=== PATIENT | female | born 1960 | race Caucasian/White ===

== ENCOUNTER → 2017-02-01 | Outpatient (CLI) | payer OTHER ==
--- NOTE | 2017-02-01 15:23 | XR ---
EXAMINATION TYPE: XR chest 2V DATE OF EXAM: 02/01/2017 COMPARISON: Prior chest x-ray September 04, 2010 HISTORY: Cough and shortness of breath for 3 weeks. TECHNIQUE: Frontal and lateral views of the chest are obtained. FINDINGS: Chronic emphysematous change is present. There is no focal air space opacity, pleural effu tomas, or pneumothorax seen. The cardiac silhouette size is within normal limits with atherotic walters e in aortic knob. The osseous structures are demineralized. Slight underlying S-shaped scoliosis is present. IMPRESSION: Chronic emphysematous change without acute pulmonary process.
== END | disposition home or self-care (01) ==
LOC: RADXRMAIN 15:03
PROVIDERS: ATTEND Family Medicine
DX: J43.8 Other emphysema (principal)
CPT/HCPCS: 71020

== ENCOUNTER → 2017-06-24 | Outpatient (CLI) | payer OTHER ==
--- NOTE | 2017-06-27 08:24 | MM ---
Reason for exam: screening (asymptomatic). Last mammogram was performed 1 year and 9 months ago. History: Patient is postmenopausal. Family history of breast cancer in mother at age 63. Benign excisional biopsy of the right breast, 2007. Benign US right core biopsy of the right breast, August 29, 2006. Cyst aspiration of the right breast. Took hormonal contraceptives for 25 years beginning at age 20. Physical Findings: A clinical breast exam by your physician is recommended on an annual basis and results should be correlated with mammographic findings. MG Screening Mammo w CAD Bilateral CC and MLO view(s) were taken. Prior study comparison: September 11, 2015, bilateral MG 3d screening mammo w/cad. June 26, 2014, bilateral MG diagnostic mammo w CAD [facility]. There are scattered fibroglandular densities. Previous mammotome biopsy in the right breast. There is no discrete abnormality. ASSESSMENT: Benign, BI-RAD 2 RECOMMENDATION: Routine screening mammogram of both breasts in 1 year.
== END | disposition home or self-care (01) ==
LOC: RADMAMWWP 09:43
PROVIDERS: ATTEND Family Medicine
DX: Z12.31 Encounter for screening mammogram for malignant neoplasm of breast (principal)
CPT/HCPCS: 77067

== ENCOUNTER 2019-04-28 13:49 | Emergency (ER) | payer MEDICARE, OTHER ==
[2019-04-28 14:47] VITALS: BP 115/69; PULSE 92; RESP 18; TEMP 98
--- NOTE | 2019-04-28 15:42 | ED ---
Lower Extremity Injury HPI - General Chief Complaint: Extremity Injury, Lower Stated Complaint: Leg wound Source: patient Mode of arrival: ambulatory Limitations: no limitations - History of Present Illness Initial Comments: 58 yo on immune therapy for RA (compromised) presenting for possible infection. patient states hit leg on 04/17, sustained abrasion. Now for the past 2 days the are has appeared red, increased pain. no drainge, abscess, no fever, flu like symptoms. no proximal spread. Denies any other symptoms or complaints. Patient appears well nontoxic on arrival - Related Data Previous Rx's Medication Instructions Recorded Clindamycin [Cleocin] 450 mg PO Q8H 7 Days #63 capsule 04/28/19 Allergies Allergy/AdvReac Type Severity Reaction Status Date / Time cephalexin [From Keflex] AdvReac Nausea Verified 04/28/19 14:47 codeine AdvReac Nausea Verified 04/28/19 14:47 erythromycin base AdvReac Nausea Verified 04/28/19 14:47 Review of Systems ROS Statement: Those systems with pertinent positive or pertinent negative responses have been documented in the HPI. ROS Other: All systems not noted in ROS Statement are negative. Past Medical History Past Medical History: Rheumatoid Arthritis (RA), Thyroid Disorder History of Any Multi-Drug Resistant Organisms: None Reported Past Surgical History: Orthopedic Surgery Additional Past Surgical History / Comment(s): nasal Past Psychological History: No Psychological Hx Reported Smoking Status: Former smoker Past Alcohol Use History: None Reported Past Drug Use History: None Reported General Exam - General Exam Comments Initial Comments: General: The patient is awake and alert, in no distress, and does not appear acutely ill. Eye: Pupils are equal, round and reactive to light, extra-ocular movements are intact. No nystagmus. There is normal conjunctiva bilaterally. No signs of icterus. Cardiovascular: There is a regular rate and rhythm. No murmur, rub or gallop is appreciated. Respiratory: Lungs are clear to auscultation, respirations are non-labored, breath sounds are equal. No wheezes, stridor, rales, or rhonchi. Musculoskeletal: Normal ROM, no tenderness. Strength 5/5. Sensation intact. Pulses equal bilaterally 2+. Neurological: A&O x 3. CN II-XII intact grossly, There are no obvious motor or sensory deficits. Coordination appears grossly intact. Speech is normal. Skin: Skin is warm and dry and no rashes. 2cm scabbed over abrasion left anterior kelly, no area of fluctuance. Surrounding erythema rylan tis warm to palpation roughly 3cm from abrasion site. Psychiatric: Cooperative, appropriate mood & affect, normal judgment. Limitations: no limitations Course Vital Signs 04/28/19 14:44 Temperature 98.0 F Pulse Rate 92 Respiratory 18 Rate Blood Pressure 115/69 O2 Sat by Pulse 98 Oximetry Medical Decision Making - Medical Decision Making 58yo cc possible infection, exam consistent with cellulitis no abscess. patient has no MRSA hx. will be started on clindamycin given cephalexin allergy history. Discussed c.difficile risk, patient understandings. No fever, no systemic signs of infection, patient will be discharge with PCP f/u if worsens as discussed patient is to return immediately to the Er. patient verbalized understanding d/c appearing well. Disposition Clinical Impression: Cellulitis Disposition: HOME SELF-CARE Condition: Good Instructions (If sedation given, give patient instructions): Cellulitis (ED) Additional Instructions: Please use medication as discussed. Please follow-up with family doctor in the next 2 days. Please return to emergency room if the symptoms increase or worsen or for any other concerns-fevers, spreading of redness. Prescriptions: Clindamycin [Cleocin] 450 mg PO Q8H 7 Days #63 capsule Is patient prescribed a controlled substance at d/c from ED?: No Referrals: Ferny Dorsey DO [Primary Care Provider] - 1-2 days Time of Disposition: 15:41
== END 2019-04-28 15:46 | disposition home or self-care (01) ==
LOC: EC 13:49
DX: L03.116 Cellulitis of left lower limb (principal); S80.812A Abrasion, left lower leg, initial encounter; M06.9 Rheumatoid arthritis, unspecified; Z87.891 Personal history of nicotine dependence; Z88.1 Allergy status to other antibiotic agents; Z88.5 Allergy status to narcotic agent; Z79.899 Other long term (current) drug therapy; W22.8XXA Striking against or struck by other objects, initial encounter
CPT/HCPCS: 99283

== ENCOUNTER 2020-03-19 16:07 | Emergency (ER) | payer MEDICARE, OTHER ==
[2020-03-19 16:33] VITALS: BP 132/64; PULSE 94; RESP 18; TEMP 98.5
--- NOTE | 2020-03-19 17:15 | XR ---
EXAMINATION TYPE: XR forearm LT DATE OF EXAM: 03/19/2020 COMPARISON: NONE HISTORY: Pain TECHNIQUE: 3 views FINDINGS: There is impacted comminuted transverse fracture distal radial metaphysis. This is 1 cm fro m the wrist joint. Ulna appears intact. There is no dislocation. Elbow joint appears intact. IMPRESSION: Acute impacted nondisplaced distal radius fracture with comminution.
--- NOTE | 2020-03-19 17:16 | XR ---
EXAMINATION TYPE: XR wrist complete LT DATE OF EXAM: 03/19/2020 COMPARISON: NONE HISTORY: Pain. Fall. TECHNIQUE: 4 views. There is acute impacted transverse comminuted fracture distal radial metaphysis. Carpal bones are int act. Scaphoid appears normal. Metacarpals are appear intact. IMPRESSION: Acute impacted nondisplaced transverse distal radius fracture.
--- NOTE | 2020-03-19 17:17 | XR ---
EXAMINATION TYPE: XR hand complete LT DATE OF EXAM: 03/19/2020 COMPARISON: NONE HISTORY: Pain TECHNIQUE: 3 views FINDINGS: Metacarpals are intact. The fingers are intact. There is mild subluxation deformity at the first MP joint. There is impacted transverse fracture distal radius. IMPRESSION: Mild subluxation at the first MP joint consistent with some instability. Distal radius fr acture noted. No sign of inflammatory arthritis.
[2020-03-19] MEDS ORDERED: HYDROcodone/APAP 5-325MG 1 EACH TAB PO STA (17:26)
--- NOTE | 2020-03-19 17:29 | ED ---
Fall HPI - General Chief Complaint: Fall Stated Complaint: poss broken wrist Time Seen by Provider: 03/19/20 16:46 Source: patient Mode of arrival: ambulatory - History of Present Illness Initial Comments: 59-year-old female presenting to the emergency room with a chief complaint of left wrist pain. Patient states she was walking, lost her footing and in attempt to brace her fall with both of her hands. He states most of the fall was on the left hand. States no other areas pain and swelling in the left wrist. Reports limited range of motion with flexion and extension of the breast due to pain. Denies any numbness or tingling. Does report taking [id number] analgesics with some improvement in symptoms. States any movement exacerbates the pain. Rest alleviates the pain. She denies head injury, loss of consciousness. No blood thinners. - Related Data Home Medications Medication Instructions Recorded Confirmed Albuterol Inhaler [Ventolin Hfa 2 puff INHALATION RT-QID PRN 03/19/20 03/19/20 Inhaler] Etanercept [Enbrel Sureclick] 50 mg SQ FR 03/19/20 03/19/20 Fluticasone/Vilanterol [Breo 1 puff INHALATION RT-DAILY 03/19/20 03/19/20 Ellipta 200-25 Mcg INH] Levothyroxine Sodium [Synthroid] 75 mcg PO DAILY 03/19/20 03/19/20 Meclizine [Antivert] 12.5 mg PO TID 03/19/20 03/19/20 Multivitamins, Thera [Multivitamin 1 tab PO DAILY 03/19/20 03/19/20 (formulary)] Omeprazole 20 mg PO DAILY PRN 03/19/20 03/19/20 Previous Rx's Medication Instructions Recorded oxyCODONE-APAP 5-325MG [Percocet 1 tab PO Q6HR PRN 3 Days #12 tab 03/19/20 5-325 mg] Allergies Allergy/AdvReac Type Severity Reaction Status Date / Time cephalexin [From Keflex] AdvReac Nausea Verified 03/19/20 17:30 codeine AdvReac Nausea Verified 03/19/20 17:30 erythromycin base AdvReac Nausea Verified 03/19/20 17:30 Review of Systems ROS Statement: Those systems with pertinent positive or pertinent negative responses have been documented in the HPI. ROS Other: All systems not noted in ROS Statement are negative. Past Medical History Past Medical History: Rheumatoid Arthritis (RA), Thyroid Disorder History of Any Multi-Drug Resistant Organisms: None Reported Past Surgical History: Orthopedic Surgery Additional Past Surgical History / Comment(s): nasal Past Psychological History: No Psychological Hx Reported Smoking Status: Never smoker Past Alcohol Use History: None Reported Past Drug Use History: None Reported General Exam Limitations: no limitations General appearance: alert, in no apparent distress Head exam: Present: atraumatic, normocephalic, normal inspection Eye exam: Present: normal appearance, PERRL, EOMI Pupils: Present: normal accommodation ENT exam: Present: normal exam, normal oropharynx, mucous membranes moist, TM's normal bilaterally, normal external ear exam Neck exam: Present: normal inspection, full ROM. Absent: tenderness Respiratory exam: Present: normal lung sounds bilaterally. Absent: respiratory distress, wheezes, rales Cardiovascular Exam: Present: regular rate, normal rhythm, normal heart sounds GI/Abdominal exam: Present: soft. Absent: distended, tenderness, guarding Extremities exam: Present: tenderness (Left wrist tenderness to palpation. No scaphoid tenderness.), normal capillary refill, other (+2 ulnar and radial pulses bilaterally. Sensation intact in the left hand.). Absent: normal inspection (Swelling noted at the left wrist, particularly the lateral aspect.), full ROM (Limited range of motion due to pain with wrist flexion and extension.), pedal edema, joint swelling, calf tenderness Back exam: Present: normal inspection, full ROM. Absent: tenderness, CVA tenderness (R), CVA tenderness (L) Neurological exam: Present: alert, oriented X3 Psychiatric exam: Present: normal affect, normal mood Skin exam: Present: warm, dry, intact, normal color Course Vital Signs 03/19/20 16:30 Temperature 98.5 F Pulse Rate 94 Respiratory 18 Rate Blood Pressure 132/64 O2 Sat by Pulse 94 L Oximetry Procedures - Orthopedic Splinting/Casting Injury #1 Side: left Upper Extremity Injury Location: wrist Upper Extremity Immobilizer: volar splint, Braeden wrap, synthetic pre-padded splint Medical Decision Making - Medical Decision Making 59-year-old female presenting to the emergency department with a chief complaint of left wrist pain. On exam, patient has limited range of motion and tenderness to the left wrist. However, she is neurovascularly intact. X-ray reveals acute, impacted nondisplaced transverse distal radial fracture. Patient was given analgesia after she initially declined. Volar splint was applied. Patient was advised to follow-up with an unattended ground sensor specialist. She was also discharged with Percocet because she is ALLERGIC to codeine and states this is the only medication to burst for pain for her. Return parameters thoroughly discussed the patient is understanding and agreeable. Case discussed with physician. Disposition Clinical Impression: Fall, Distal radius fracture, left, Left wrist fracture Disposition: HOME SELF-CARE Condition: Stable Instructions (If sedation given, give patient instructions): Wrist Fracture in Adults (ED) Additional Instructions: follow up with an unattended ground sensor specialist. Do not drive or operate heavy machinery when taking the medication. Keep the arm elevated. Prescriptions: oxyCODONE-APAP 5-325MG [Percocet 5-325 mg] 1 tab PO Q6HR PRN 3 Days #12 tab PRN Reason: Pain Is patient prescribed a controlled substance at d/c from ED?: Yes If prescribed controlled substance>3 days was MAPS reviewed?: Prescribed <3 Days Referrals: Ferny Dorsey DO [Primary Care Provider] - 1-2 days Luis Gylnn MD [STAFF PHYSICIAN] - 1-2 days Time of Disposition: 17:28
== END 2020-03-19 17:50 | disposition home or self-care (01) ==
LOC: EC 16:07
DX: S52.502A Unspecified fracture of the lower end of left radius, initial encounter for closed fracture (principal); E07.9 Disorder of thyroid, unspecified; M06.9 Rheumatoid arthritis, unspecified; Z79.51 Long term (current) use of inhaled steroids; Z79.899 Other long term (current) drug therapy; Z79.890 Hormone replacement therapy; Z88.5 Allergy status to narcotic agent; Z88.1 Allergy status to other antibiotic agents; W18.30XA Fall on same level, unspecified, initial encounter; Y93.01 Activity, walking, marching and hiking
CPT/HCPCS: 29125; 99283

== ENCOUNTER → 2020-05-23 | Outpatient (CLI) | payer MEDICARE, OTHER ==
--- NOTE | 2020-05-23 11:29 | BD ---
EXAMINATION TYPE: Axial Bone Density DATE OF EXAM: 05/23/2020 COMPARISON: NONE CLINICAL HISTORY: Height: 5 FT 2 IN Weight: 119 FRAX RISK QUESTIONS: Alcohol (3 or more units per day): NO Family History (Parent hip fracture): NO Glucocorticoids (More than 3mos): YES (Ex: prednisone, prednisolone, methylprednisolone, dexamethasone, and hydrocortisone). History of Fracture in Adulthood: YES Secondary Osteoporosis: 1. Type 1 Diabetes: NO 2. Hyperthyroidism: NO 3. Menopause before 45: NO 4. Malnutrition: NO 5. Chronic liver disease: NO Rheumatoid Arthritis: YES Current Tobacco Use: NO RISK FACTORS HISTORY OF: History of Wrist Fracture: LEFT When: 2019 Family History of Osteoporosis: NO Active: YES Diet low in dairy products/other sources of calcium: NO Postmenopausal woman: [place] 2006 NO SYMPTOMS OF MENOPAUSE Lost more than 2 inches in height since high school: YES MEDICATIONS: Thyroid Medications: YES Which medication: SYNTHROID How Lon YEARS How Long: Additional Medications: ANTIVERT, SYNTHROID ,INHALER, NEBULIZER,ENBREL Additional History: EXAM MEASUREMENTS: Bone mineral densitometry was performed using the [employer] System. Bone mineral density as measured about the Lumbar spine is: ----- L1-L4(G/cm2): 1.061 T Score Values are as follows: ----- L2: -0.9 ----- L3: -0.3 ----- L4: -1.3 ----- L1-L4: -1.0 BASELINE Bone mineral density about the R hip (g/cm2): 0.710 Bone mineral density about the L hip (g/cm2): 0.741 T Score values are as follows: -----R Neck: -2.4 -----L Neck: -2.1 -----R Total: -2.4 -----L Total: -2.2 BASELINE IMPRESSION: Osteopenia NOTE: T-SCORE=SD OF THE YOUNG ADULT MEAN.
== END | disposition home or self-care (01) ==
LOC: RADBDWWP 09:59
PROVIDERS: ATTEND Internal Medicine Rheumatology
DX: M85.80 Other specified disorders of bone density and structure, unspecified site (principal); M80.00XA Age-related osteoporosis with current pathological fracture, unspecified site, initial encounter for fracture; M06.9 Rheumatoid arthritis, unspecified; Z79.51 Long term (current) use of inhaled steroids; Z87.81 Personal history of (healed) traumatic fracture
CPT/HCPCS: 77080

== ENCOUNTER → 2020-06-27 | Outpatient (CLI) | payer MEDICARE, OTHER ==
--- NOTE | 2020-06-27 09:34 | CT ---
EXAMINATION TYPE: CT elbow LT wo con DATE OF EXAM: 06/27/2020 COMPARISON: Left forearm x-ray March 19, 2020. HISTORY: Displaced fracture of olecranon process, left elbow pain. CT DLP: 209 mGycm Automated exposure control for dose reduction was used. FINDINGS: Exam suboptimal as imaging not performed in satisfactory repeat plain positioning. There is obliquity on all images are reconstructed images obtained. There is acute comminuted slightly displaced fracture through the olecranon. No dislocation is presen t. There is 1.5 x 1.3 cm free fracture fragment between the lip of the olecranon and the proximal uln ar metadiaphysis marked for reference sagittal image 16. No intra-articular loose bodies clearly seen . Suspect one or 2 additional small ossific fracture fragments at site of fracture on coronal and axi al reconstructed images. A few tiny loose ossific fragments noted dorsally axial image 33 series 7 fo r reference. The radial head is intact. Distal humerus is intact. Surrounding cast material is seen. Abnormal fat pad signs consistent with intra-articular effusion or hematoma noted corresponds to intra-articular fracture. IMPRESSION: As above.
== END ==
LOC: RADCTMAIN 07:02
PROVIDERS: ATTEND Orthopaedic Surgery
DX: S52.032A Displaced fracture of olecranon process with intraarticular extension of left ulna, initial encounter for closed fracture (principal)

== ENCOUNTER → 2021-02-13 | Outpatient (CLI) | payer MEDICARE, OTHER ==
--- NOTE | 2021-02-13 14:13 | US ---
EXAMINATION TYPE: US thyroid st tissue head/neck DATE OF EXAM: 02/13/2021 COMPARISON: NONE CLINICAL HISTORY: E03.9 HYPOTHYROIDISM. Pt states hypothyroid x many years, has been on thyroid meds x many years GLAND SIZE: Right Lobe: 3.1 x 1.0 x 0.8 cm Overall Parenchyma: heterogenous Left Lobe: 3.2 x 1.0 x 0.6 cm Overall Parenchyma: heterogeneous Isthmus Thickness: 0.2 cm Bilateral neck scanned, no evidence of lymphadenopathy. Bilateral thyroid heterogeneous, small in siz e/ No definite nodules visualized. IMPRESSION: Thyroid lobes are diminutive in size and heterogenous. No distinct nodules are seen.
== END | disposition home or self-care (01) ==
LOC: RADUSWWP 13:37
PROVIDERS: ATTEND Family Medicine
DX: E03.9 Hypothyroidism, unspecified (principal)
CPT/HCPCS: 76536

== ENCOUNTER → 2021-06-01 | Outpatient (CLI) | payer MEDICARE, OTHER | END | disposition home or self-care (01) | LOC: LABWHC1 13:47 | PROVIDERS: ATTEND Internal Medicine Endocrinology, Diabetes & Metabolism | DX: E03.8 Other specified hypothyroidism (principal) | CPT/HCPCS: 36415; 84443 ==

== ENCOUNTER → 2022-01-12 | Outpatient (CLI) | payer MEDICARE, OTHER ==
[2022-01-12 19:19] LABS: African American GFR (CKD) 92.2 (60.0-200.0); Albumin 4.4 g/dL (3.8-4.9); Albumin/Globulin Ratio 1.57 (1.60-3.17); Anion Gap 8.3 mmol/L (10.00-18.00); BUN/Creat Ratio 18.88 Ratio (12.00-20.00); Blood Urea Nitrogen 15.1 mg/dL (9.0-27.0); Calcium 9.7 mg/dL (8.7-10.3); Carbon Dioxide 30.7 mmol/L (20.0-27.5); Globulin 2.8 g/dL (1.6-3.3); Non-African American GFR(CKD) 79.6 (60.0-200.0); Potassium 4.1 mmol/L (3.5-5.5); Total Bilirubin 0.2 mg/dL (0.30-1.20); Total Protein 7.2 g/dL (6.2-8.2)
== END | disposition home or self-care (01) ==
LOC: LABWHC1 14:08
PROVIDERS: ATTEND Internal Medicine Endocrinology, Diabetes & Metabolism
DX: E03.8 Other specified hypothyroidism (principal)
CPT/HCPCS: 36415; 80053; 82306; 84443

== ENCOUNTER → 2022-02-04 | Outpatient (CLI) | payer MEDICARE, OTHER ==
--- NOTE | 2022-02-04 12:08 | XR ---
EXAMINATION TYPE: XR chest 2V DATE OF EXAM: 02/04/2022 COMPARISON: 02/01/2017 TECHNIQUE: PA and lateral views submitted. HISTORY: Chest congestion FINDINGS: The lungs are clear and there is no pneumothorax, pleural effusion, or focal pneumonia. Atheroscler otic change aorta. Curvature the spine with degenerative changes. No overt failure. Hyperinflation moulton ggests COPD. Hypertrophic and degenerative change of the spine. IMPRESSION: 1. No acute process. Correlate for COPD.
== END | disposition home or self-care (01) ==
LOC: RADXRMAIN 11:35
PROVIDERS: ATTEND Nurse Practitioner Family
DX: R05.9 Cough, unspecified (principal); R09.89 Other specified symptoms and signs involving the circulatory and respiratory systems
CPT/HCPCS: 71046

== ENCOUNTER → 2023-09-08 | Outpatient (CLI) | payer MEDICARE, OTHER | END | disposition home or self-care (01) | LOC: LABWHC1 10:44 | PROVIDERS: ATTEND Internal Medicine Endocrinology, Diabetes & Metabolism | DX: E03.8 Other specified hypothyroidism (principal); R53.83 Other fatigue | CPT/HCPCS: 36415; 82306; 84443 ==

== ENCOUNTER 2023-12-23 10:29 | Emergency (ER) | payer MEDICARE, OTHER ==
[2023-12-23 10:46] VITALS: BP 127/67; TEMP 98.4
--- NOTE | 2023-12-23 11:26 | ED ---
Back Pain HPI - General Chief Complaint: Back Pain/Injury Stated Complaint: Fall injury Time Seen by Provider: 12/23/23 11:24 Source: patient, RN notes reviewed Limitations: no limitations - History of Present Illness Initial Comments: 63-year-old female presenting with low back pain x 1 hour. States she was at home gardening, when her legs got tangled in her garden hose and she tripped and hit her tailbone on a landscaping brick. She also hit her left side and is having left rib pain. She is able to ambulate. She admits pain with deep inspiration. Denies blood thinners. She is a former tobacco smoker. No other heart or lung conditions. Did not hit her head or lose consciousness. - Related Data Home Medications Medication Instructions Recorded Confirmed Albuterol Inhaler [Ventolin Hfa 2 puff INHALATION RT-QID PRN 03/19/20 12/23/23 Inhaler] Fluticasone/Vilanterol [Breo 1 puff INHALATION RT-DAILY 03/19/20 12/23/23 Ellipta 200-25 Mcg INH] Omeprazole 20 mg PO DAILY PRN 03/19/20 12/23/23 Celecoxib [CeleBREX] 200 mg PO DAILY PRN 12/23/23 12/23/23 Levothyroxine Sodium [Synthroid] 88 mcg PO DAILY 12/23/23 12/23/23 Meclizine [Antivert] 25 mg PO Q8H PRN 12/23/23 12/23/23 Previous Rx's Medication Instructions Recorded Lidocaine 5% Patch [Lidoderm 5% 1 patch TOPICAL DAILY 7 Days #7 12/23/23 Patch] patch methocarbamoL [Robaxin] 500 mg PO TID PRN #15 tab 12/23/23 Allergies Allergy/AdvReac Type Severity Reaction Status Date / Time cephalexin [From Keflex] AdvReac Nausea & Verified 12/23/23 12:42 Vomiting & Diarrhea codeine AdvReac Nausea & Verified 12/23/23 12:42 Vomiting & Diarrhea erythromycin base AdvReac Nausea & Verified 12/23/23 12:42 Vomiting & Diarrhea hydrocodone AdvReac vertigo, Verified 12/23/23 12:42 nausea, vomiting upadacitinib [From Rinvoq] AdvReac Nausea & Verified 12/23/23 12:42 Vomiting & Diarrhea, severe stomach pains Review of Systems ROS Statement: Those systems with pertinent positive or pertinent negative responses have been documented in the HPI. ROS Other: All systems not noted in ROS Statement are negative. Past Medical History Past Medical History: Rheumatoid Arthritis (RA), Thyroid Disorder History of Any Multi-Drug Resistant Organisms: None Reported Past Surgical History: Orthopedic Surgery Additional Past Surgical History / Comment(s): nasal Past Psychological History: No Psychological Hx Reported Smoking Status: Never smoker Past Alcohol Use History: None Reported Past Drug Use History: None Reported General Exam Limitations: no limitations General appearance: alert, in no apparent distress Head exam: Present: atraumatic, normocephalic, normal inspection Eye exam: Present: normal appearance, PERRL, EOMI. Absent: scleral icterus, conjunctival injection, periorbital swelling ENT exam: Present: normal exam, mucous membranes moist Respiratory exam: Present: normal lung sounds bilaterally, chest wall tenderness (Left lateral rib tenderness with mild contusion overlying). Absent: respiratory distress, wheezes, rales, rhonchi, stridor Cardiovascular Exam: Present: regular rate, normal rhythm, normal heart sounds. Absent: systolic murmur, diastolic murmur, rubs, gallop, clicks GI/Abdominal exam: Present: soft, normal bowel sounds. Absent: distended, tenderness, guarding, rebound, rigid Back exam: Present: normal inspection, vertebral tenderness (Diffuse lumbar spine tenderness) Neurological exam: Present: alert, oriented X3 Psychiatric exam: Present: normal affect, normal mood Course Vital Signs 12/23/23 12/23/23 10:42 14:10 Temperature 98.4 F Pulse Rate 94 77 Respiratory 20 16 Rate Blood Pressure 127/67 O2 Sat by Pulse 94 L 95 Oximetry Medical Decision Making - Medical Decision Making Was pt. sent in by a medical professional or institution (, PA, AUTOMOTIVE SERVICE TECHNICIAN, urgent care, hospital, or group home...) When possible be specific @ -No Did you speak to anyone other than the patient for history (EMS, parent, family, police, friend...)? What history was obtained from this source @ -No Did you review nursing and triage notes (agree or disagree)? Why? @ -I reviewed and agree with nursing and triage notes Were old charts reviewed (outside hosp., previous admission, EMS record, old EKG, old radiological studies, urgent care reports/EKG's, group home records)? Report findings @ -No old charts were reviewed Differential Diagnosis (chest pain, altered mental status, abdominal pain women, abdominal pain men, vaginal bleeding, weakness, fever, dyspnea, syncope, headache, dizziness, GI bleed, back pain, seizure, CVA, palpatations, mental health, musculoskeletal)? @ -Differential Musculoskeletal Muscular strain, contusion, ligament sprain, fracture, arthritis, septic ar thritis, bursitis, cellulitis, muscle spasm, nerve compression, DVT, arterial occlusion, herpes zoster, electrolyte abnormality, tumor.... This is not meant to be in all inclusive list EKG interpreted by me (3pts min.). @ -None X-rays interpreted by me (1pt min.). @ -X-ray of lumbar spine and left ribs reveals no acute process CT interpreted by me (1pt min.). @ -None done U/S interpreted by me (1pt. min.). @ -None done What testing was considered but not performed or refused? (CT, X-rays, U/S, labs)? Why? @ -None What meds were considered but not given or refused? Why? @ -None Did you discuss the management of the patient with other professionals (professionals i.e. , PA, AUTOMOTIVE SERVICE TECHNICIAN, lab, RT, psych nurse, social work specialist, real estate lawyer, teacher, juvenile officer, mental health case manager)? Give summary @ -No Was smoking cessation discussed for >3mins.? @ -No Was critical care preformed (if so, how long)? @ -No Were there social determinants of health that impacted care today? How? (Homelessness, low income, unemployed, alcoholism, drug addiction, transportation, low edu. Level, literacy, decrease access to med. care, senior living, rehab)? @ -No Was there de-escalation of care discussed even if they declined (Discuss DNR or withdrawal of care, Hospice)? DNR status @ -No What co-morbidities impacted this encounter? (DM, HTN, Smoking, COPD, CAD, Cancer, CVA, ARF, Chemo, Hep., AIDS, mental health diagnosis, sleep apnea, morbid obesity)? @ -None Was patient admitted / discharged? Hospital course, mention meds given and route, prescriptions, significant lab abnormalities, going to OR and other pertinent info. @ -Patient was discharged. Patient was seen and evaluated for low back pain/left rib pain status post mechanical fall prior to arrival. No red flag symptoms. Patient is neurovascularly intact. X-rays of lumbar spine and left ribs reveals no acute process. Patient given incentive spirometer due to symptoms and prescribed lidocaine patches and muscle relaxer for pain. Discussed findings, likely due to left rib strain and low back strain. Supportive care discussed. Return precautions discussed and patient is agreeable. Case was discussed with my ED attending Dr. Torres. Patient discharged in stable condition. Undiagnosed new problem with uncertain prognosis? @ -No Drug Therapy requiring intensive monitoring for toxicity (Heparin, Nitro, Insulin, Cardizem)? @ -No Were any procedures done? @ -No Diagnosis/symptom? @ -Low back strain, left rib contusion Acute, or Chronic, or Acute on Chronic? @ -Acute Uncomplicated (without systemic symptoms) or Complicated (systemic symptoms)? @ -Uncomplicated Side effects of treatment? @ -No Exacerbation, Progression, or Severe Exacerbation? @ -No Poses a threat to life or bodily function? How? (Chest pain, USA, [place], pneumonia, PE, COPD, DKA, ARF, appy, cholecystitis, CVA, Diverticulitis, Homicidal, Suicidal, threat to staff... and all critical care pts) @ -No Disposition Clinical Impression: Contusion of rib on left side, Low back strain Disposition: HOME SELF-CARE Condition: Stable Instructions (If sedation given, give patient instructions): Muscle Strain (ED) Additional Instructions: Use incentive spirometer once hourly while awake. Use lidocaine patches and muscle relaxer as needed for pain. Please return to the Emergency Department if symptoms worsen or any other concerns. Prescriptions: Lidocaine 5% Patch [Lidoderm 5% Patch] 1 patch TOPICAL DAILY 7 Days #7 patch methocarbamoL [Robaxin] 500 mg PO TID PRN #15 tab PRN Reason: muscle spasms Is patient prescribed a controlled substance at d/c from ED?: No Referrals: Ferny Dorsey DO [Primary Care Provider] - 1-2 days Time of Disposition: 14:05
--- NOTE | 2023-12-23 13:30 | XR ---
EXAMINATION TYPE: XR ribs LT w pa chest xray DATE OF EXAM: 12/23/2023 12:34 PM CLINICAL INDICATION: Female, 63 years old with history of left sided rib pain; COMPARISON: None TECHNIQUE: XR ribs LT w pa chest xray; Frontal and oblique views of the ribs with frontal chest radio graph. FINDINGS: The ribs have a normal appearance. No evidence of fracture. Overall, the lungs are clear. The cardiac silhouette is normal in size. The remaining osseous structures are intact. Scoliosis ch anges to the spine. Atherosclerosis of the arterial vasculature. IMPRESSION: No acute osseous pathology.
--- NOTE | 2023-12-23 13:34 | XR ---
EXAMINATION TYPE: XR lumbar spine 2 or 3V DATE OF EXAM: 12/23/2023 12:34 PM CLINICAL INDICATION: Female, 63 years old with history of low back injury; [facility] COMPARISON: None TECHNIQUE: XR lumbar spine 2 or 3V - Frontal, lateral and coned in L5-S1 lateral views of the spine. FINDINGS: No evidence of any acute osseous pathology. No evidence of loss of vertebral body height i s seen. There is normal alignment of the lumbar vertebral bodies. Scattered disc space narrowing. Mul tilevel marginal osteophyte formation throughout the visualized spine. There is facet joint arthropat hy throughout the spine. Scattered at least mild neural foraminal stenosis. IMPRESSION: 1. No acute fracture. 2. Moderate multilevel disc degeneration.
[2023-12-23 14:12] VITALS: PULSE 77; RESP 16
== END 2023-12-23 14:44 | disposition home or self-care (01) ==
LOC: EC 10:29
DX: W19.XXXA Unspecified fall, initial encounter
CPT/HCPCS: 72100; 99283

== ENCOUNTER → 2024-06-19 | Outpatient (CLI) | payer MEDICARE ==
--- NOTE | 2024-06-19 09:33 | CT ---
EXAMINATION TYPE: CT wrist RT wo con DATE OF EXAM: 06/19/2024 COMPARISON: None. CLINICAL INDICATION: Female, 63 years old with history of S52.591A RADIUS FRACTURE; [facility], RIGHT WRIST FRACTURE CT DLP: 149.9 mGycm Automated exposure control for dose reduction was used. FINDINGS: Acute or subacute avulsion type fracture from the ulnar aspect ulnar styloid with 7 mm ossific fragme nt is noted. There is more important acute comminuted slightly displaced intra-articular fracture through the dist al radial meta-epiphysis extending to the articular surface along the ulnar aspect. There is narrowin g of the ulnar palmar aspect of the distal radius at its articulation with the lunate bone. Carpal joint rows are preserved without additional acute displaced fracture. There is mild to moderate degenerative change at the base of the first metacarpal and the triscaphe j oint. Moderate subcutaneous edema overlying the dorsal aspect of the distal forearm and wrist extending doyle ng the ulnar aspect is noted. IMPRESSION: As above. [facility], , 06/19/2024 9:30 AM
== END | disposition home or self-care (01) ==
LOC: RADCTMAIN 08:49
PROVIDERS: ATTEND Orthopaedic Surgery
DX: S52.571A Other intraarticular fracture of lower end of right radius, initial encounter for closed fracture (principal)

== ENCOUNTER 2024-07-29 20:52 | Inpatient (IN) | payer MEDICARE ==
--- NOTE | 2024-07-29 20:58 | ED ---
SOB HPI - General Chief Complaint: Shortness of Breath Stated Complaint: MATTHIEU Time Seen by Provider: 07/29/24 20:57 Source: patient, RN notes reviewed, old records reviewed Mode of arrival: ambulatory Limitations: no limitations - History of Present Illness Initial Comments: This is a 63 female to ER for evaluation of dyspnea. Severe shortness of breath with history of asthma and COPD. Patient states for the last 2 days she could not catch her breath she has been dealing with cough and congestion for a few weeks now on and off and getting progressively worse. Multiple doctor visit as well as urgent care visits without improvement in symptoms. No chest pain. MD Complaint: shortness of breath, cough, "asthma attack" -: days(s) Severity: mild Severity scale (1-10): 3 Consistency: constant Improves With: nothing Worsens With: nothing Known History Of: COPD Context: recent URI, recent illness Associated Symptoms: denies other symptoms - Related Data Home Medications Medication Instructions Recorded Confirmed Albuterol Inhaler [Ventolin Hfa 2 puff INHALATION RT-QID PRN 03/19/20 07/30/24 Inhaler] Levothyroxine Sodium [Synthroid] 88 mcg PO AC-BRKFST 12/23/23 07/30/24 Meclizine [Antivert] 25 mg PO TID 12/23/23 07/30/24 Ipratropium-Albuterol Nebulize 3 ml INHALATION RT-QID 07/30/24 07/30/24 [Duoneb 0.5 mg-3 mg/3 ml Soln] Tocilizumab [Actemra Actpen] 162 mg SQ DIRECTED 07/30/24 07/30/24 Previous Rx's Medication Instructions Recorded Fluticasone/Umeclidin/Vilanter 1 inhalation INHALATION DAILY 30 07/31/24 [Trelegy Ellipta 100-62.5-25] Days #1 each predniSONE 10 mg PO DIRECTED #30 tab 07/31/24 Allergies Allergy/AdvReac Type Severity Reaction Status Date / Time cephalexin [From Keflex] AdvReac Nausea & Verified 07/30/24 09:50 Vomiting & Diarrhea & Dizziness codeine AdvReac Nausea & Verified 07/30/24 09:50 Vomiting & Diarrhea & Dizziness erythromycin base AdvReac Nausea & Verified 07/30/24 09:50 Vomiting & Diarrhea & Dizziness hydrocodone AdvReac Nausea & Verified 07/30/24 09:50 Vomiting & Diarrhea & Dizziness upadacitinib [From Rinvoq] AdvReac Nausea & Verified 07/30/24 09:50 Vomiting & Diarrhea, severe stomach pains Review of Systems ROS Statement: Those systems with pertinent positive or pertinent negative responses have been documented in the HPI. ROS Other: All systems not noted in ROS Statement are negative. Past Medical History Past Medical History: COPD, Rheumatoid Arthritis (RA), Thyroid Disorder History of Any Multi-Drug Resistant Organisms: None Reported Past Surgical History: Orthopedic Surgery Additional Past Surgical History / Comment(s): nasal Past Psychological History: No Psychological Hx Reported Smoking Status: Never smoker Past Alcohol Use History: None Reported Past Drug Use History: None Reported General Exam Limitations: no limitations General appearance: alert, in no apparent distress Head exam: Present: atraumatic, normocephalic, normal inspection Eye exam: Present: normal appearance, PERRL, EOMI. Absent: scleral icterus, conjunctival injection, periorbital swelling ENT exam: Present: normal exam, mucous membranes moist Neck exam: Present: normal inspection. Absent: tenderness, meningismus, lymphadenopathy Respiratory exam: Present: normal lung sounds bilaterally. Absent: respiratory distress, wheezes, rales, rhonchi, stridor Cardiovascular Exam: Present: regular rate, normal rhythm, normal heart sounds. Absent: systolic murmur, diastolic murmur, rubs, gallop, clicks GI/Abdominal exam: Present: soft, normal bowel sounds. Absent: distended, tenderness, guarding, rebound, rigid Extremities exam: Present: normal inspection, full ROM, normal capillary refill. Absent: tenderness, pedal edema, joint swelling, calf tenderness Back exam: Present: normal inspection Neurological exam: Present: alert, oriented X3, CN II-XII intact Psychiatric exam: Present: normal affect, normal mood Skin exam: Present: warm, dry, intact, normal color. Absent: rash Course Vital Signs 07/29/24 07/29/24 07/29/24 20:52 21:07 22:00 Temperature 99.2 F Pulse Rate 129 H 105 H Respiratory 22 18 Rate Blood Pressure 155/78 135/72 O2 Sat by Pulse 77 L 92 L 96 Oximetry 07/29/24 07/29/24 07/29/24 22:23 22:33 22:34 Temperature Pulse Rate 98 100 100 Respiratory Rate Blood Pressure O2 Sat by Pulse Oximetry 07/29/24 07/29/24 22:44 23:11 Temperature 98.1 F Pulse Rate 100 99 Respiratory 22 Rate Blood Pressure 152/75 O2 Sat by Pulse 95 Oximetry - Reevaluation(s) Reevaluation #1: 07/29/24 22:23 Medical record is reviewed Reevaluation #2: 07/29/24 22:23 Patient symptoms relatively improved with supplemental O2 and breathing treatments Reevaluation #3: 07/29/24 22:23 Patient informed of results and questions answered Reevaluation #4: Was pt. sent in by a medical professional or institution (, GERALDINE, SCREEN ROLLER, urgent care, hospital, or fpc...) When possible be specific @ -no Did you speak to anyone other than the patient for history (EMS, parent, family, police, friend...)? What history was obtained from this source @ -no Did you review nursing and triage notes (agree or disagree)? Why? @ -agree Are old charts reviewed (outside hosp., previous admission, EMS record, old EKG, old radiological studies, urgent care reports/EKG's, fpc records)? Report findings @ -yes Differential Diagnosis (chest pain, altered mental status, abdominal pain women, abdominal pain men, vaginal bleeding, weakness, fever, dyspnea, syncope, headache, dizziness, GI bleed, back pain, seizure, CVA, palpatations, mental health, musculoskeletal)? @ -prior EKG interpreted by me (3pts min.). @ -yes X-rays interpreted by me (1pt min.). @ -yes positive for pneumonia CT interpreted by me (1pt min.). @ -no U/S interpreted by me (1pt. min.). @ -no What testing was considered but not performed or refused? (CT, X-rays, U/S, labs)? Why? @ -none What meds were considered but not given or refused? Why? @ -none Did you discuss the management of the patient with other professionals (professionals i.e. GERALDINE Morel, SCREEN ROLLER, lab, RT, psych nurse, social media content manager, digital analytics manager, teacher, chief executive officer, disease case manager)? Give summary @ -no Was smoking cessation discussed for >3mins.? @ -no Was critical care preformed (if so, how long)? @ -yes31 Were there social determinants of health that impacted care today? How? (Homelessness, low income, unemployed, alcoholism, drug addiction, transportati on, low edu. Level, literacy, decrease access to med. care, halfway, rehab)? @ -none Was there de-escalation of care discussed even if they declined (Discuss DNR or withdrawal of care, Hospice)? DNR status @ -no What co-morbidities impacted this encounter? (DM, HTN, Smoking, COPD, CAD, Cancer, CVA, ARF, Chemo, Hep., AIDS, mental health diagnosis, sleep apnea, morbid obesity)? @ -none Was patient admitted / discharged? Hospital course, mention meds given and route, prescriptions, significant lab abnormalities, going to OR and other pertinent info. @ - 63 female not on supplemental O2 coming in for severe COPD bronchitis exacerbation hypoxia with significant wheezing and shortness of breath on arrival, patient improved with supplemental O2 breathing treatments and will continue that here in the ER Admitted Undiagnosed new problem with uncertain prognosis? @ -no Drug Therapy requiring intensive monitoring for toxicity (Heparin, Nitro, Insulin, Cardizem)? @ -no Were any procedures done? @ -no Diagnosis/symptom? @ -Pneumonia COPD with hypoxia Acute, or Chronic, or Acute on Chronic? @ -Acute Uncomplicated (without systemic symptoms) or Complicated (systemic symptoms)? @ -Complicated Side effects of treatment? @ -no Exacerbation, Progression, or Severe Exacerbation? @ -exacerbation Poses a threat to life or bodily function? How? (Chest pain, [place], [place], pneumonia, PE, COPD, DKA, ARF, appy, cholecystitis, CVA, Diverticulitis, Homicidal, Suicidal, threat to staff... and all critical care pts) @ -yes respiratory failure Reevaluation #5: Differential Dyspnea: Coronary syndrome, arrhythmia, tamponade, asthma, COPD, pulmonary embolism, pneumonia, pneumothorax, pulmonary effusion, anaphylaxis, diabetic ketoacidosis, flailed chest, pulmonary contusion, diaphragmatic rupture, anemia, neuromuscular, this is not meant to be an all-inclusive list. - Consultations Consultation #1: Spoke with [facility] who agrees to admit this patient Medical Decision Making - Medical Decision Making 63 female not on supplemental O2 coming in for severe COPD bronchitis exacerb ation hypoxia with significant wheezing and shortness of breath on arrival, patient improved with supplemental O2 breathing treatments and will continue that here in the ER - Lab Data Result diagrams: 07/30/24 05:01 07/30/24 05:01 Lab Results 07/29/24 07/29/24 07/29/24 Range/Units 21:13 21:13 21:13 WBC 12.1 H (3.8-10.6) k/uL RBC 4.23 (3.80-5.40) m/uL Hgb 14.0 (11.4-16.0) gm/dL Hct 41.1 (34.0-46.0) % MCV 97.1 (80.0-100.0) fL MCH 33.0 (25.0-35.0) pg MCHC 34.0 (31.0-37.0) g/dL RDW 13.9 (11.5-15.5) % Plt Count 359 (150-450) k/uL MPV 7.1 Neutrophils % 90 % Lymphocytes % 3 % Monocytes % 5 % Eosinophils % 0 % Basophils % 0 % Neutrophils # 10.9 H (1.3-7.7) k/uL Lymphocytes # 0.4 L (1.0-4.8) k/uL Monocytes # 0.6 (0-1.0) k/uL Eosinophils # 0.0 (0-0.7) k/uL Basophils # 0.1 (0-0.2) k/uL PT 9.6 L (10.0-12.5) sec INR 0.8 (<1.2) APTT 22.8 (22.0-30.0) sec Sodium 132 L (137-145) mmol/L Potassium 3.9 (3.5-5.1) mmol/L Chloride 95 L (98-107) mmol/L Carbon Dioxide 32 H (22-30) mmol/L Anion Gap 5 mmol/L BUN 16 (7-17) mg/dL Creatinine 0.49 L (0.52-1.04) mg/dL Est GFR (CKD-EPI)AfAm >90 (>60 ml/min/1.73 sqM) Est GFR (CKD-EPI)NonAf >90 (>60 ml/min/1.73 sqM) Glucose 134 H (74-99) mg/dL Plasma Lactic Acid Demarcus (0.7-2.0) mmol/L Calcium 9.4 (8.4-10.2) mg/dL Magnesium 1.6 (1.6-2.3) mg/dL Total Bilirubin 0.5 (0.2-1.3) mg/dL AST 44 H (14-36) U/L ALT 42 H (4-34) U/L Alkaline Phosphatase 93 (38-126) U/L Troponin I (0.000-0.034) ng/mL NT-Pro-B Natriuret Pep 193 pg/mL Total Protein 6.7 (6.3-8.2) g/dL Albumin 4.0 (3.5-5.0) g/dL Influenza Type A (PCR) (Not Detectd) Influenza Type B (PCR) (Not Detectd) RSV (PCR) (Not Detectd) SARS-CoV-2 (PCR) (Not Detectd) 07/29/24 07/29/24 07/29/24 Range/Units 21:13 21:13 21:28 WBC (3.8-10.6) k/uL RBC (3.80-5.40) m/uL Hgb (11.4-16.0) gm/dL Hct (34.0-46.0) % MCV (80.0-100.0) fL MCH (25.0-35.0) pg MCHC (31.0-37.0) g/dL RDW (11.5-15.5) % Plt Count (150-450) k/uL MPV Neutrophils % % Lymphocytes % % Monocytes % % Eosinophils % % Basophils % % Neutrophils # (1.3-7.7) k/uL Lymphocytes # (1.0-4.8) k/uL Monocytes # (0-1.0) k/uL Eosinophils # (0-0.7) k/uL Basophils # (0-0.2) k/uL PT (10.0-12.5) sec INR (<1.2) APTT (22.0-30.0) sec Sodium (137-145) mmol/L Potassium (3.5-5.1) mmol/L Chloride (98-107) mmol/L Carbon Dioxide (22-30) mmol/L Anion Gap mmol/L BUN (7-17) mg/dL Creatinine (0.52-1.04) mg/dL Est GFR (CKD-EPI)AfAm (>60 ml/min/1.73 sqM) Est GFR (CKD-EPI)NonAf (>60 ml/min/1.73 sqM) Glucose (74-99) mg/dL Plasma Lactic Acid Demarcus 1.3 (0.7-2.0) mmol/L Calcium (8.4-10.2) mg/dL Magnesium (1.6-2.3) mg/dL Total Bilirubin (0.2-1.3) mg/dL AST (14-36) U/L ALT (4-34) U/L Alkaline Phosphatase (38-126) U/L Troponin I <0.012 (0.000-0.034) ng/mL NT-Pro-B Natriuret Pep pg/mL Total Protein (6.3-8.2) g/dL Albumin (3.5-5.0) g/dL Influenza Type A (PCR) Not Detected (Not Detectd) Influenza Type B (PCR) Not Detected (Not Detectd) RSV (PCR) Not Detected (Not Detectd) SARS-CoV-2 (PCR) Not Detected (Not Detectd) - EKG Data -: EKG Interpreted by Me (EKG is sinus tachycardia 129 ME 110 QRS 95 QTc 402) - Radiology Data Radiology results: report reviewed (Chest x-ray positive pneumonia), image reviewed Critical Care Time Critical Care Time: Yes Total Critical Care Time: 31 Disposition Clinical Impression: Acute exacerbation of chronic obstructive pulmonary disease, Acute respiratory distress syndrome in adult, Acute respiratory failure, Hypoxia, Community acquired pneumonia Disposition: ADMITTED IP TO THIS HOSP Condition: Serious Is patient prescribed a controlled substance at d/c from ED?: No Time of Disposition: 22:20
[2024-07-29] MEDS: SODIUM CHLORIDE 0.9% 1,000 ML IV SCH ×2 (21:15→23:02)
[2024-07-29] MEDS: methylPREDNISolone SOD SUCCI 125 MG/2 ML VIAL IV STA (21:16)
--- NOTE | 2024-07-29 21:51 | XR ---
EXAMINATION TYPE: XR chest 1V portable DATE OF EXAM: 07/29/2024 9:11 PM COMPARISON: 06/14/2024 CLINICAL INDICATION: Female, 63 years old with history of sob, TECHNIQUE: XR chest 1V portable view(s) obtained. FINDINGS: The heart size is normal. The pulmonary vasculature is normal. There is mild perihilar increased lung markings. Correlate for acute bronchitis. Some minimal subsegm ental atelectasis may be at the left base. Small right pleural effusion may be present. Consider atyp ical pneumonia. IMPRESSION: 1. Correlate for acute bronchitis or atypical pneumonia 2. Minimal right pleural effusion may be present. [facility], , 07/29/2024 9:49 PM
[2024-07-29 21:52] LABS: ALT 42 U/L (4-34); AST 44 U/L (14-36); African American GFR (CKD) >90 (>60 ml/min/1.73 sqM); Alkaline Phosphatase 93 U/L (38-126); Anion Gap 5 mmol/L; Blood Urea Nitrogen 16 mg/dL (7-17); Calcium 9.4 mg/dL (8.4-10.2); Carbon Dioxide 32 mmol/L (22-30); Chloride 95 mmol/L (98-107); Glucose 134 mg/dL (74-99); Magnesium 1.6 mg/dL (1.6-2.3); Non-African American GFR(CKD) >90 (>60 ml/min/1.73 sqM); Potassium 3.9 mmol/L (3.5-5.1); Sodium 132 mmol/L (137-145); Total Bilirubin 0.5 mg/dL (0.2-1.3); Total Protein 6.7 g/dL (6.3-8.2)
[2024-07-29 22:01] LABS: NT-Pro-B-Type Natriuretic Pept 193 pg/mL
[2024-07-29 22:04] LABS: INR 0.8 (<1.2); Partial Thromboplastin Time 22.8 sec (22.0-30.0); Prothrombin Time 9.6 sec (10.0-12.5)
[2024-07-29 22:10] LABS: Influenza A Not Detected (Not Detectd); Influenza B Not Detected (Not Detectd); RSV Not Detected (Not Detectd)
[2024-07-29 22:17] LABS: Basophils # (A) 0.1 k/uL (0-0.2); Basophils % (A) 0 %; Eosinophils % (A) 0 %; HCT 41.1 % (34.0-46.0); Lymphocytes # (A) 0.4 k/uL (1.0-4.8); Lymphocytes % (A) 3 %; MCV 97.1 fL (80.0-100.0); Mean Platelet Volume 7.1; Monocytes # (A) 0.6 k/uL (0-1.0); Monocytes % (A) 5 %; Neutrophils # (A) 10.9 k/uL (1.3-7.7); Neutrophils % (A) 90 %; Platelet Count 359 k/uL (150-450); RBC 4.23 m/uL (3.80-5.40); RDW 13.9 % (11.5-15.5); WBC 12.1 k/uL (3.8-10.6)
[2024-07-29] MEDS ORDERED: NALOXONE 0.4 MG/ML 1 ML VIAL IV PRN (22:20)
[2024-07-29] MEDS ORDERED: MORPHINE SULFATE 4 MG/ML SYRINGE IV PRN (22:20)
[2024-07-29] MEDS ORDERED: ONDANSETRON 4 MG/2 ML VIAL IVP PRN (22:20)
[2024-07-29] MEDS: ALBUTEROL NEBULIZED 2.5 MG/3 ML INHALATION STA (22:22)
[2024-07-29] MEDS: cefTRIAXone IN SWFI 1,000 MG/10 ML SYRINGE IVP STA (23:02)
[2024-07-29] MEDS: IPRATROPIUM-ALBUTEROL 3 ML NEB INHALATION STA (23:05)
[2024-07-29] MEDS: IPRATROPIUM 0.5 MG/2.5 ML NEBU INHALATION STA (23:05)
[2024-07-30] MEDS: AZITHROMYCIN 500 MG in SODIUM CHLORIDE 0.9% 250 ML IVPB STA (00:24)
[2024-07-30] MEDS: ALBUTEROL NEBULIZED 2.5 MG/3 ML INHALATION SCH (01:42)
[2024-07-30] MEDS: methylPREDNISolone SOD SUCCI 125 MG/2 ML VIAL IV SCH (02:58)
[2024-07-30 05:40] LABS: ALT 38 U/L (4-34); AST 36 U/L (14-36); African American GFR (CKD) >90 (>60 ml/min/1.73 sqM); Albumin 3.5 g/dL (3.5-5.0); Alkaline Phosphatase 86 U/L (38-126); Anion Gap 2 mmol/L; Blood Urea Nitrogen 12 mg/dL (7-17); Calcium 8.9 mg/dL (8.4-10.2); Carbon Dioxide 34 mmol/L (22-30); Chloride 100 mmol/L (98-107); Glucose 164 mg/dL (74-99); Magnesium 1.8 mg/dL (1.6-2.3); Non-African American GFR(CKD) >90 (>60 ml/min/1.73 sqM); Phosphorus 4.1 mg/dL (2.5-4.5); Sodium 136 mmol/L (137-145); Total Bilirubin 0.4 mg/dL (0.2-1.3)
[2024-07-30 05:59] LABS: Basophils % (A) 0 %; Eosinophils % (A) 0 %; HCT 38.6 % (34.0-46.0); HGB 12.7 gm/dL (11.4-16.0); Lymphocytes # (A) 0.3 k/uL (1.0-4.8); Lymphocytes % (A) 3 %; MCH 32.4 pg (25.0-35.0); MCHC 32.9 g/dL (31.0-37.0); MCV 98.4 fL (80.0-100.0); Mean Platelet Volume 6.8; Monocytes # (A) 0.1 k/uL (0-1.0); Monocytes % (A) 1 %; Neutrophils # (A) 7.7 k/uL (1.3-7.7); Neutrophils % (A) 94 %; Platelet Count 345 k/uL (150-450); RBC 3.92 m/uL (3.80-5.40); RDW 13.9 % (11.5-15.5); WBC 8.2 k/uL (3.8-10.6)
--- NOTE | 2024-07-30 06:47 | P.CNPUL ---
History of Present Illness Consult date: 07/30/24 Requesting physician: Jaswinder Hernández Reason for consult: hypoxemia Chief complaint: Difficulty in breathing History of present illness: Patient is a 63-year-old female with past medical history significant for COPD, hypothyroidism, rheumatoid arthritis. Her primary care provider is Dr. Ferny Dorsey. Presented to the emergency department late last night with a chief complaint of severe shortness of breath over the last 48 hours. States she was treated for bronchitis multiple times over the past 4 weeks by her primary care provider with multiple rounds of antibiotics and steroids. Most recently given a course of Augmentin. Symptoms seem to improve with treatment and then worsen once tapering off steroids. She does have a history of COPD, and is a former tobacco smoker. Normally uses a combination of Breo Ellipta maintenance inhaler, as needed albuterol inhaler, and DuoNebs 3 times a day. Over the last 48 hours, she has had increased work of breathing and presented the emergency department late last night. Noted to be hypoxic and placed on 4 L supplemental oxygen. Workup in the emergency department including a chest x-ray which showing coarse interstitial markings. Concern for acute bronchitis or atypical pneumonia. Hyperinflation consistent with COPD. Possible trace right pleural effusion. Viral 4 Plex negative for influenza, RSV, COVID. CBC: WBC count 12.1, hemoglobin 14, platelets 359. CMP: Sodium 132, potassium 3.9, chloride 95, serum bicarb 32 consistent with chronic metabolic alkalosis, BUN 16, creatinine 0.49, glucose 134. Lactic 1.3. LFTs unremarkable. Troponin less than 0.012. NT proBNP 193. Normal sinus infusing at 75 mL/h. Previously r eceived doses of azithromycin and Rocephin in the ED. Also, started on high- dose IV steroids. Patient currently being evaluated on the 6th floor. She is on 4 L/min nasal cannula. She has just ambulated back from the bathroom. Now resting comfortably in no respiratory distress. She is not oxygen dependent at baseline. States that her symptoms initially started approximately 4 weeks ago with nasal drainage and postnasal drip. Developed chest congestion and cough. Her cough is now less persistent and dry. Denies sputum production. Denies any fevers. Denies known sick contacts. Denies chest pain, heart palpitations, lower extremity edema. Current vital signs: Temperature 97.8 F, heart rate 95 bpm, blood pressure 152/80 mmHg, SPO2 recorded at 94% on 4 L/min nasal cannula. Review of Systems Constitutional: Reports fatigue, Reports sweats, Denies chills, Denies fever, Denies poor appetite, Denies weakness Ears, nose, mouth and throat: Reports nasal congestion, Reports nasal discharge, Denies headache Cardiovascular: Denies chest pain, Denies leg edema, Denies lightheadedness, Denies orthopnea, Denies palpitations, Denies paroxysmal nocturnal dyspnea, Denies syncope Respiratory: Reports as per HPI Gastrointestinal: Denies abdominal pain, Denies constipation, Denies diarrhea, Denies loss of appetite, Denies nausea, Denies vomiting Genitourinary: Denies dysuria Musculoskeletal: Denies limitation of motion Integumentary: Denies rash Neurological: Denies headaches, Denies seizures, Denies syncope Psychiatric: Denies anxiety, Denies depression Past Medical History Past Medical History: COPD, Rheumatoid Arthritis (RA), Thyroid Disorder History of Any Multi-Drug Resistant Organisms: None Reported Past Surgical History: Adenoidectomy, Orthopedic Surgery, Tonsillectomy, Uterine Ablation Additional Past Surgical History / Comment(s): nasal, tendon repair on right hand (1983); deviated septum fix (2000); Bone spur removal right foot (2010); Inner ocular lense implant right eye (2010); Hammer toe fix (left foot) (2014); Cyst removal in right foot (2015) Past Anesthesia/Blood Transfusion Reactions: Postoperative Nausea & Vomiting (PONV) Past Psychological History: No Psychological Hx Reported Smoking Status: Never smoker Past Alcohol Use History: None Reported Past Drug Use History: None Reported Medications and Allergies Home Medications Medication Instructions Recorded Confirmed Type Albuterol Inhaler [Ventolin Hfa 2 puff INHALATION RT-QID PRN 03/19/20 12/23/23 History Inhaler] Fluticasone/Vilanterol [Breo 1 puff INHALATION RT-DAILY 03/19/20 12/23/23 History Ellipta 200-25 Mcg INH] Omeprazole 20 mg PO DAILY PRN 03/19/20 12/23/23 History Celecoxib [CeleBREX] 200 mg PO DAILY PRN 12/23/23 12/23/23 History Levothyroxine Sodium [Synthroid] 88 mcg PO DAILY 12/23/23 12/23/23 History Lidocaine 5% Patch [Lidoderm 5% 1 patch TOPICAL DAILY 7 Days #7 12/23/23 Rx Patch] patch Meclizine [Antivert] 25 mg PO Q8H PRN 12/23/23 12/23/23 History methocarbamoL [Robaxin] 500 mg PO TID PRN #15 tab 12/23/23 Rx Allergies Allergy/AdvReac Type Severity Reaction Status Date / Time cephalexin [From Keflex] AdvReac Nausea & Verified 07/29/24 20:56 Vomiting & Diarrhea codeine AdvReac Nausea & Verified 07/29/24 20:56 Vomiting & Diarrhea erythromycin base AdvReac Nausea & Verified 07/29/24 20:56 Vomiting & Diarrhea hydrocodone AdvReac vertigo, Verified 07/29/24 20:56 nausea, vomiting upadacitinib [From Rinvoq] AdvReac Nausea & Verified 07/29/24 20:56 Vomiting & Diarrhea, severe stomach pains Physical Exam Vitals: Vital Signs Temp Pulse Pulse Resp BP BP Pulse Ox 07/29/24 23:51 97.8 F 95 15 152/80 94 L 07/29/24 23:11 98.1 F 99 22 152/75 95 07/29/24 22:44 100 07/29/24 22:34 100 07/29/24 22:33 100 07/29/24 22:23 98 07/29/24 22:00 105 H 18 135/72 96 07/29/24 21:07 92 L 07/29/24 20:52 99.2 F 129 H 22 155/78 77 L Intake and Output 07/29/24 07/29/24 07/30/24 14:59 22:59 06:59 Other: Weight 52.163 kg 52.163 kg GENERAL EXAM: Alert, 63-year-old white female, has just ambulated back from the bathroom, on 4 L/min nasal cannula, not in any respiratory distress. HEAD: Normocephalic and atraumatic EYES: Normal reaction of pupils, equal size. NOSE: Clear with pink turbinates. THROAT: No erythema or exudates. NECK: No masses, no JVD. CHEST: No chest wall deformity. LUNGS: Equal air entry with minimal end expiratory wheezes. No conversational dyspnea or accessory muscle use.. CVS: S1 and S2 normal with no audible murmur, regular rhythm. No extra heart sounds ABDOMEN: No hepatosplenomegaly, active bowel sounds, no guarding or rigidity. SPINE: No scoliosis or deformity SKIN: No rashes CENTRAL NERVOUS SYSTEM: No focal deficits, tone is normal in all 4 extremities. EXTREMITIES: There is no peripheral edema, clubbing, or cyanosis. Peripheral pulses are intact. Right forearm brace Results - Laboratory Findings CBC and BMP: 07/30/24 05:01 07/30/24 05:01 PT/INR, D-dimer PT 9.6 sec (10.0-12.5) L 07/29/24 21:13 INR 0.8 (<1.2) 07/29/24 21:13 Abnormal lab findings: Abnormal Labs 07/29/24 07/29/24 07/29/24 21:13 21:13 21:13 WBC 12.1 H Neutrophils # 10.9 H Lymphocytes # 0.4 L PT 9.6 L Sodium 132 L Chloride 95 L Carbon Dioxide 32 H Creatinine 0.49 L Glucose 134 H AST 44 H ALT 42 H - Diagnostic Findings Chest x-ray: image reviewed Assessment and Plan Assessment: Acute COPD exacerbation Acute hypoxemic respiratory failure, on 4 L nasal cannula, secondary to above, chest x-ray which showing coarse interstitial markings. Concern for acute bronchitis or atypical pneumonia. Hyperinflation consistent with COPD. Possible trace right pleural effusion. History of rheumatoid arthritis History of hypothyroidism History of fall resulting in right ulnar fracture Former tobacco smoker, quitting in 2015 Plan: Wean supplemental oxygen to maintain oxygen saturation 92% or greater Start combination of DuoNebs [id number], Symbicort inhaler, and continue IV Solu-Medrol Continue empiric azithromycin Check procalcitonin Viral 4 Plex negative for influenza A/B, RSV, COVID We will continue to follow I have personally seen and examined the patient, performed the documentation and the assessment and plan as written. Number of minutes spent on the visit:20 Time with Patient: Greater than 30
[2024-07-30] MEDS: IPRATROPIUM-ALBUTEROL 3 ML NEB INHALATION SCH (08:57)
[2024-07-30] MEDS: SYMBICORT 160-4.5 MCG INHALER INHALATION SCH (08:58)
--- NOTE | 2024-07-30 12:29 | P.HPIM ---
History of Present Illness H&P Date: 07/30/24 Chief Complaint: Progressive shortness of breath This is a 63-year-old female with past medical history significant for bronchitis, COPD, rheumatoid arthritis, hypothyroidism, former nicotine dependence , not O2 dependent and multiple other medical issues presented to the ER with complaints of progressive shortness of breath over the last 2 to 3 days. States a week ago ,she went to urgent care received antibiotics/Augmentin for bilateral ear infections and by this past she developed worsening shortness of breath. States she has been treated for recurrent bronchitis since Moy's Day 3, experiencing sinus nasal drainage accompanied by cough and congestion. On admission hypoxic with O2 sat of 77% on room air.Required 4 L nasal cannula O2 to maintain O2 sats in the 90s. Chest x-ray reported mild perihilar increased lung markings, possible right pleural effusion, minimal subsegmental left base atelectasis with concern for acute bronchitis or atypical pneumonia. Tmax 99.2, WBC 12.1, lactic acid 1.3 hemoglobin 14, platelets 359 ,INR 0.8, sodium 132, potassium 3.9, bicarb 32, BUN 16, creatinine 0.49 glucose 134. AST 44, ALT 42, viral screen negative. Troponins negative x 1, proBNP 193. Received gentle IV fluid hydration, IV steroids initiated. Currently O2 has been weaned down to 3 L, maintaining O2 sats in the 90s, occasional nonproductive cough. Denies known sick contacts. denies lightheadedness ,dizziness or focal deficits. Denies chest pain, palpitations or shortness of breath. Review of Systems ROS Statement: Those systems with pertinent positive or pertinent negative responses have been documented in the HPI. ROS Other: All systems not noted in ROS Statement are negative. Past Medical History Past Medical History: COPD, Rheumatoid Arthritis (RA), Thyroid Disorder History of Any Multi-Drug Resistant Organisms: None Reported Past Surgical History: Adenoidectomy, Orthopedic Surgery, Tonsillectomy, Uterine Ablation Additional Past Surgical History / Comment(s): nasal, tendon repair on right hand (1983); deviated septum fix (2000); Bone spur removal right foot (2010); Inner ocular lense implant right eye (2010); Hammer toe fix (left foot) (2014); Cyst removal in right foot (2016) Past Anesthesia/Blood Transfusion Reactions: Postoperative Nausea & Vomiting (PONV) Past Psychological History: No Psychological Hx Reported Smoking Status: Never smoker Past Alcohol Use History: None Reported Past Drug Use History: None Reported Medications and Allergies Home Medications Medication Instructions Recorded Confirmed Type Albuterol Inhaler [Ventolin Hfa 2 puff INHALATION RT-QID PRN 03/19/20 07/30/24 History Inhaler] Fluticasone/Vilanterol [Breo 1 puff INHALATION RT-DAILY 03/19/20 07/30/24 History Ellipta 200-25 Mcg INH] Levothyroxine Sodium [Synthroid] 88 mcg PO AC-BRKFST 12/23/23 07/30/24 History Meclizine [Antivert] 25 mg PO TID 12/23/23 07/30/24 History Ipratropium-Albuterol Nebulize 3 ml INHALATION RT-QID 07/30/24 07/30/24 History [Duoneb 0.5 mg-3 mg/3 ml Soln] Tocilizumab [Actemra Actpen] 162 mg SQ DIRECTED 07/30/24 07/30/24 History Allergies Allergy/AdvReac Type Severity Reaction Status Date / Time cephalexin [From Keflex] AdvReac Nausea & Verified 07/30/24 09:50 Vomiting & Diarrhea & Dizziness codeine AdvReac Nausea & Verified 07/30/24 09:50 Vomiting & Diarrhea & Dizziness erythromycin base AdvReac Nausea & Verified 07/30/24 09:50 Vomiting & Diarrhea & Dizziness hydrocodone AdvReac Nausea & Verified 07/30/24 09:50 Vomiting & Diarrhea & Dizziness upadacitinib [From Rinvoq] AdvReac Nausea & Verified 07/30/24 09:50 Vomiting & Diarrhea, severe stomach pains Physical Exam Vitals: Vital Signs Temp Pulse Pulse Resp BP BP Pulse Ox 07/30/24 09:14 92 07/30/24 08:58 88 07/30/24 07:00 97.5 F L 78 16 122/69 95 07/30/24 01:33 98.2 F 96 15 122/66 98 07/29/24 23:51 97.8 F 95 15 152/80 94 L 07/29/24 23:11 98.1 F 99 22 152/75 95 07/29/24 22:44 100 07/29/24 22:34 100 07/29/24 22:33 100 04/06/25 22:23 98 07/29/24 22:00 105 H 18 135/72 96 07/29/24 21:07 92 L 07/29/24 20:52 99.2 F 129 H 22 155/78 77 L Intake and Output 07/29/24 07/30/24 07/30/24 22:59 06:59 14:59 Other: # Voids 2 Weight 52.163 kg 52.163 kg PHYSICAL EXAM: VITAL SIGNS: [Reviewed] GENERAL: 63-year-old, pleasant female, alert and oriented x 3, sitting up in bed, no acute distress HEENT: Normocephalic, atraumatic ,conjunctivae normal. eyes normal. MMM. NECK: Supple, no JVD. No thyroid enlargement. No LNs CARDIOVASCULAR: S1, S2 regular.. No murmur RESPIRATION: Unlabored, equal air entry , fine expiratory wheezing with bilateral bases diminished. ABDOMEN: Soft, nontender, nondistended. No guarding. No rigidity. no masses or hepatosplenomegaly appreciated, positive bowel sounds LEGS: No edema. no swelling NERVOUS SYSTEM: Cranial N 2-12 grossly normal. No focal deficits. Strength and sensation grossly intact. Skin: Warm and dry, no rash Results CBC & Chem 7: 07/30/24 05:01 07/30/24 05:01 Labs: Abnormal Lab Results - Last 24 Hours (Table) 07/29/24 07/29/24 07/29/24 Range/Units 21:13 21:13 21:13 WBC 12.1 H (3.8-10.6) k/uL Neutrophils # 10.9 H (1.3-7.7) k/uL Lymphocytes # 0.4 L (1.0-4.8) k/uL PT 9.6 L (10.0-12.5) sec Sodium 132 L (137-145) mmol/L Chloride 95 L (98-107) mmol/L Carbon Dioxide 32 H (22-30) mmol/L Creatinine 0.49 L (0.52-1.04) mg/dL Glucose 134 H (74-99) mg/dL AST 44 H (14-36) U/L ALT 42 H (4-34) U/L Total Protein (6.3-8.2) g/dL 07/30/24 07/30/24 Range/Units 05:01 05:01 WBC (3.8-10.6) k/uL Neutrophils # (1.3-7.7) k/uL Lymphocytes # 0.3 L (1.0-4.8) k/uL PT (10.0-12.5) sec Sodium 136 L (137-145) mmol/L Chloride (98-107) mmol/L Carbon Dioxide 34 H (22-30) mmol/L Creatinine 0.44 L (0.52-1.04) mg/dL Glucose 164 H (74-99) mg/dL AST (14-36) U/L ALT 38 H (4-34) U/L Total Protein 6.0 L (6.3-8.2) g/dL Assessment and Plan Assessment: Acute COPD exacerbation Basilar atelectasis Possible acute bronchitis or atypical pneumonia suggested per chest x-ray, procalcitonin pending Acute hypoxic respiratory failure secondary to all the above. Rheumatoid arthritis Hypothyroidism Former nicotine dependence Plan: Continue on current medication regimen ,monitoring and symptomatic treatment. Aggressive pulmonary toileting with nebulized bronchodilators, Symbicort, IV steroids and empiric antibiotics. Procalcitonin pending. Pulmonary following. The impression and plan of care has been dictated as directed. : I performed a history and examination of this patient, discussed the same with the dictator. I agree with the dictator's note ,documented as a scribe. Any additional findings or plans will be noted.
[2024-07-30] MEDS: MECLIZINE 25 MG TAB PO SCH (20:03)
[2024-07-30] MEDS: FLUCONAZOLE 150 MG TAB PO SCH (20:03)
[2024-07-30] MEDS: AZITHROMYCIN 500 MG in SODIUM CHLORIDE 0.9% 250 ML IVPB SCH (20:04)
[2024-07-31] MEDS: LEVOTHYROXINE 88 MCG TAB PO SCH (05:33)
[2024-07-31 08:02] VITALS: BP 134/75; RESP 17; TEMP 98.5
[2024-07-31] MEDS: AZITHROMYCIN 500 MG in SODIUM CHLORIDE 0.9% 250 ML IVPB SCH (09:57)
[2024-07-31] MEDS: predniSONE 20 MG TAB PO SCH (09:58)
--- NOTE | 2024-07-31 11:27 | P.DS ---
Providers Date of admission: 07/29/24 22:20 Expected date of discharge: 07/31/24 Attending physician: Ferny Dorsey Consults: 07/29/24 22:20 Consult Physician Routine Consulting Provider: Ronan Kaminski Consult Reason/Comments: hypoxia Do you want consulting provider notified?: Yes Primary care physician: Ferny Dorsey Hospital Course: Final Diagnoses: Acute COPD exacerbation Basilar atelectasis Possible acute bronchitis or atypical pneumonia suggested per chest x-ray, procalcitonin negative. Antibiotics discontinued. Acute hypoxic respiratory failure secondary to all the above. Rheumatoid arthritis Hypothyroidism Former nicotine dependence Hospital course:This is a 63-year-old female with past medical history significant for bronchitis, COPD, rheumatoid arthritis, hypothyroidism, former nicotine dependence , not O2 dependent and multiple other medical issues presented to the ER with complaints of progressive shortness of breath over the last 2 to 3 days. States a week ago ,she went to urgent care received antibiotics/Augmentin for bilateral ear infections and by this past she developed worsening shortness of breath. States she has been treated for recurrent bronchitis since 's Day 3, experiencing sinus nasal drainage accompanied by cough and congestion. On admission hypoxic with O2 sat of 77% on room air.Required 4 L nasal cannula O2 to maintain O2 sats in the 90s. Chest x- ray reported mild perihilar increased lung markings, possible right pleural effusion, minimal subsegmental left base atelectasis with concern for acute bronchitis or atypical pneumonia. Tmax 99.2, WBC 12.1, lactic acid 1.3 hemoglobin 14, platelets 359 ,INR 0.8, sodium 132, potassium 3.9, bicarb 32, BUN 16, creatinine 0.49 glucose 134. AST 44, ALT 42, viral screen negative. Troponins negative x 1, proBNP 193. Received gentle IV fluid hydration, IV steroids initiated. Currently O2 has been weaned down to 3 L, maintaining O2 sats in the 90s, occasional nonproductive cough. Denies known sick contacts. denies lightheadedness ,dizziness or focal deficits. Denies chest pain, palpitations or shortness of breath. Continue on current medication regimen ,monitoring and symptomatic treatment. Aggressive pulmonary toileting with nebulized bronchodilators, Symbicort, IV steroids and empiric antibiotics. Procalcitonin pending. Pulmonary following. Significant clinical improvement. Denies worsening shortness of breath, cough or congestion. Maintaining O2 sats in the low 90s on room air at rest, decreases to 87% with conversing, desatted to 76% on room air with ambulating. Patient will require 2 L nasal cannula O2 for discharge. afebrile, normal WBC, procalcitonin within normal limits, 0.08. Pulmonary recommending discontinuing antibiotics, Trelegy at discharge. Currently maintaining O2 sats in the high 90s on 2 to 2-1/2 L nasal cannula O2. O2 recently discontinued, monitoring O2 sats in addition to obtaining O2 sat on room air after ambulation for discharge planning. Patient will be discharged home today in a stable condition with guarded prognosis pending final DC recommendations and clearance per pulmonary. The impression and plan of care has been dictated as directed. : I performed a history and examination of this patient, discussed the same with the dictator. I agree with the dictator's note ,documented as a scribe. Any additional findings or plans will be noted. Patient Condition at Discharge: Stable Plan - Discharge Summary Discharge Rx Participant: No New Discharge Prescriptions: New Fluticasone/Umeclidin/Vilanter [Trelegy Ellipta 100-62.5-25] 1 inhalation INHALATION DAILY 30 Days #1 each predniSONE 10 mg PO DIRECTED #30 tab Continue Albuterol Inhaler [Ventolin Hfa Inhaler] 2 puff INHALATION RT-QID PRN PRN Reason: Shortness Of Breath Levothyroxine Sodium [Synthroid] 88 mcg PO AC-BRKFST Meclizine [Antivert] 25 mg PO TID Tocilizumab [Actemra Actpen] 162 mg SQ DIRECTED Ipratropium-Albuterol Nebulize [Duoneb 0.5 mg-3 mg/3 ml Soln] 3 ml INHALATION RT-QID Discontinued Fluticasone/Vilanterol [Breo Ellipta 200-25 Mcg Inhaler] 1 puff INHALATION RT-DAILY Discharge Medication List Albuterol Inhaler [Ventolin Hfa Inhaler] 2 puff INHALATION RT-QID PRN 03/19/20 [History] Levothyroxine Sodium [Synthroid] 88 mcg PO AC-BRKFST 12/23/23 [History] Meclizine [Antivert] 25 mg PO TID 12/23/23 [History] Ipratropium-Albuterol Nebulize [Duoneb 0.5 mg-3 mg/3 ml Soln] 3 ml INHALATION RT-QID 07/30/24 [History] Tocilizumab [Actemra Actpen] 162 mg SQ DIRECTED 07/30/24 [History] Fluticasone/Umeclidin/Vilanter [Trelegy Ellipta 100-62.5-25] 1 inhalation INHALATION DAILY 30 Days #1 each 07/31/24 [Rx] predniSONE 10 mg PO DIRECTED #30 tab 07/31/24 [Rx] Follow up Appointment(s)/Referral(s): Naz Crockett MD [STAFF PHYSICIAN] - 1 Week Ferny Dorsey DO [Primary Care Provider] - 1 Week [facility] [NON-STAFF] - As Needed Activity/Diet/Wound Care/Special Instructions: 2.0L NC O2- cM to arrange Discharge Disposition: HOME WITH HOME HEALTH SERVICES
[2024-07-31] MEDS: FLUCONAZOLE 150 MG TAB PO SCH (13:16)
--- NOTE | 2024-07-31 13:33 | P.PN ---
Subjective Progress Note Date: 07/31/24 Patient is a 63-year-old female with past medical history significant for COPD, hypothyroidism, rheumatoid arthritis. Her primary care provider is Dr. Ferny Dorsey. Presented to the emergency department late last night with a chief complaint of severe shortness of breath over the last 48 hours. States she was treated for bronchitis multiple times over the past 4 weeks by her primary care provider with multiple rounds of antibiotics and steroids. Most recently given a course of Augmentin. Symptoms seem to improve with treatment and then worsen once tapering off steroids. She does have a history of COPD, and is a former tobacco smoker. Normally uses a combination of Breo Ellipta maintenance inha ler, as needed albuterol inhaler, and DuoNebs 3 times a day. Over the last 48 hours, she has had increased work of breathing and presented the emergency department late last night. Noted to be hypoxic and placed on 4 L supplemental oxygen. Workup in the emergency department including a chest x-ray which showing coarse interstitial markings. Concern for acute bronchitis or atypical pneumonia. Hyperinflation consistent with COPD. Possible trace right pleural effusion. Viral 4 Plex negative for influenza, RSV, COVID. CBC: WBC count 12.1, hemoglobin 14, platelets 359. CMP: Sodium 132, potassium 3.9, chloride 95, serum bicarb 32 consistent with chronic metabolic alkalosis, BUN 16, creatin ine 0.49, glucose 134. Lactic 1.3. LFTs unremarkable. Troponin less than 0.012. NT proBNP 193. Normal sinus infusing at 75 mL/h. Previously received doses of azithromycin and Rocephin in the ED. Also, started on high-dose IV steroids. Patient currently being evaluated on the 6th floor. She is on 4 L/min nasal cannula. She has just ambulated back from the bathroom. Now resting comfortably in no respiratory distress. She is not oxygen dependent at baseline. States that her symptoms initially started approximately 4 weeks ago with nasal drainage and postnasal drip. Developed chest congestion and cough. Her cough is now less persistent and dry. Denies sputum production. Denies any fevers. Denies known sick contacts. Denies chest pain, heart palpitations, lower extremity edema. Current vital signs: Temperature 97.8 F, heart rate 95 bpm, blood pressure 152/80 mmHg, SPO2 recorded at 94% on 4 L/min nasal cannula. The patient is seen today 07/31/2024 in follow-up on the regular medical floor. She is currently sitting up at the bedside. Awake and alert in no acute distress. Breathing easier today compared to yesterday. Nearly back to her baseline. No worsening shortness of breath, cough or congestion. She is maintaining O2 saturations in the 90s on 2 L/min per nasal cannula. She did desaturate to 76% on room air with a 6-minute walk. Qualifying for home oxygen. Blood culture revealed no growth. She is continued on DuoNeb inhalations, Symbicort, Solu-Medrol. She remains on azithromycin and Diflucan. Procalcitonin was negative at 0.08. Objective - Vital Signs Vital signs: Vital Signs Temp 98.5 F 07/31/24 07:00 Pulse 76 07/31/24 12:21 Resp 17 07/31/24 07:00 BP 134/75 07/31/24 07:00 Pulse Ox 76 L 07/31/24 13:21 FiO2 Intake & Output 07/30/24 07/31/24 07/31/24 18:59 06:59 18:59 Other: # Voids 1 2 - Exam GENERAL EXAM: Alert, active, pleasant 63-year-old female, on 2 L nasal cannula, comfortable in no apparent distress. HEAD: Normocephalic. EYES: Normal reaction of pupils, equal size. NOSE: Clear with pink turbinates. THROAT: No erythema or exudates. NECK: No masses, no JVD. CHEST: No chest wall deformity. LUNGS: Equal air entry with few scattered rhonchi. CVS: S1 and S2 normal with no audible murmur, regular rhythm. ABDOMEN: No hepatosplenomegaly, normal bowel sounds, no guarding or rigidity. SPINE: No scoliosis or deformity SKIN: No rashes CENTRAL NERVOUS SYSTEM: No focal deficits, tone is normal in all 4 extremities. EXTREMITIES: There is no peripheral edema. No clubbing, no cyanosis. Peripher al pulses are intact. - Labs CBC & Chem 7: 07/30/24 05:01 07/30/24 05:01 Labs: Microbiology - Last 24 Hours (Table) 07/29/24 23:00 Blood Culture - Preliminary Blood Assessment and Plan Assessment: Acute COPD exacerbation Acute hypoxemic respiratory failure, on 2 L nasal cannula, secondary to above, chest x-ray which showing coarse interstitial markings. Concern for acute br onchitis or atypical pneumonia. Hyperinflation consistent with COPD. Possible trace right pleural effusion. Procalcitonin was negative at 0.08 History of rheumatoid arthritis History of hypothyroidism History of fall resulting in right ulnar fracture Former tobacco smoker, quitting in 2015 Plan: The patient was seen and evaluated Labs and medications reviewed Procalcitonin negative Recommend discontinuing antibiotics Cleared for discharge Evaluate for possible home oxygen Continue a prednisone taper Recommend Trelegy, albuterol HFA Continue home nebulized treatments as needed Would benefit from a follow-up in our office Full pulmonary function testing will be performed This patient was seen independently by the pulmonary nurse practitioner addressing pulmonary issues I have personally seen and examined the patient, performed the documentation and the assessment and plan as written. Number of minutes spent on the visit: 24 Dictation was produced using [employer] dictation software. Please excuse any grammatical, word or spelling errors.
[2024-07-31 16:15] VITALS: PULSE 64
[2024-08-04] MEDS ORDERED: predniSONE 10 MG TAB PO SCH (09:00)
[2024-08-08] MEDS ORDERED: predniSONE 20 MG TAB PO SCH (09:00)
[2024-08-12] MEDS ORDERED: predniSONE 10 MG TAB PO SCH (09:00)
== END 2024-07-31 17:12 | disposition home or self-care (01) | DRG 190 ==
LOC: EC 20:52 → 6NMEDSUR 22:20
PROVIDERS: ADMIT Family Medicine; ATTEND Family Medicine
DX: J44.1 Chronic obstructive pulmonary disease with (acute) exacerbation (principal); J96.01 Acute respiratory failure with hypoxia; E87.3 Alkalosis; M06.9 Rheumatoid arthritis, unspecified; E03.9 Hypothyroidism, unspecified; J98.11 Atelectasis; Z79.51 Long term (current) use of inhaled steroids; Z79.890 Hormone replacement therapy; Z79.899 Other long term (current) drug therapy; Z87.891 Personal history of nicotine dependence; Z91.81 History of falling; Z88.1 Allergy status to other antibiotic agents; Z88.5 Allergy status to narcotic agent; Z88.8 Allergy status to other drugs, medicaments and biological substances
CPT/HCPCS: 36415; 71045; 80053; 83605; 83735; 83880; 84100; 84145; 84484; 85025; 85610; 85730; 87040; 87636; 93005; 94640; 96361; 96374; 96375; 99291